=== PATIENT | male | born 1975 ===

== ENCOUNTER 2021-09-23 09:01 | Outpatient (REF) | payer OTHER, SELFPAY ==
--- NOTE | 2021-09-24 09:02 | MHC.AU.ANO ---
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 Gary reports approximately 9 years ago he experienced an accidental hit to the left ear. He had a hearing test following the incident and Gary notes the results showed decreased left ear hearing; however, a report is not available for review. There was also another episode of trauma when he fell and hit the right side of his head in 2019. Gary reports increased hearing trouble in the right ear now over the past few months. He has a significant history of headaches and intermittent unsteadiness/dizziness which increases with quick movement. Has hearing been tested previously?: Yes Previous Hearing Test Results: Results are not available for review. Hearing Handicap Inventory: HHIE SCORE: 26 Based on HHIE score, patient has: Severe perceived hearing handicap Ear History: Blocked/Full Sensation in Ear(s): Both Ears History of occupational noise exposure?: Yes History: No Medical History: Medical History: Headache, Head Injury, Vascular Problems Medical History: History of Vericose Veins with laser surgery. History of back pain Medication List: Multi vitamin, fish oil. Tramadol as need, but Gary notes he has not been taking this medication Otoscopy: Right Ear: Unremarkable Left Ear: Unremarkable Tympanometry: Tympanometry performed due to: To assess integrity of the middle ear system Right Ear: Hypercompliant Middle Ear System (Type Ad) Left Ear: Hypercompliant Middle Ear System (Type Ad) Otoacoustic Emissions Frequency Range Used: 1.6-8 kHz Right Ear Results: Present 5315-1880 Hz, Absent 6619-5951 Hz Analysis: Present emissions suggest normal cochlear function Reduced/Absent emissions suggest cochlear dysfunction, but may also be consequence of middle ear dysfunction Left Ear Results: Present 1600 & 2000 Hz. Absent 2507-3961 Hz Analysis: Present emissions suggest normal cochlear function Reduced/Absent emissions suggest cochlear dysfunction, but may also be consequence of middle ear dysfunction Hearing Evaluation: Transducer(s) Used: Insert Earphones Bone Conduction Method: Conventional Audiometry Stimuli Used: Pure Tones Right Ear: Description of Hearing: Borderline normal to normal hearing thresholds 250-8000 Hz with conductive components noted at 250 and 500 Hz Left Ear: Description of Hearing: Borderline normal hearing levels at 250-2000 Hz with mild conductive components noted, falling to a moderate mixed hearing loss at 3000 Hz, rising to normal threshold at 8000 Hz. Speech Recognition Threshold (SRT): Method Used: Monitored Live Voice Stimuli Used: Spondee Words Right Ear: 10 dB HL Left Ear: 15 dB HL Word Discrimination: Method: Recorded Lists Word Lists Used: NU-6 Right Ear: 92% at 50 dB HL Left Ear: 84% at 55 dB HL Interpretation of Results: Test results indicate an asymmetric hearing loss, with the left ear being 15-30 dB poorer than the right at 3000 and 4000 Hz, and essentially normal hearing thresholds for the remaining frequencies for both ears. There is a conductive nature to the loss for both ears which may relate to the hypercompliant middle ear systems which is greater for the left ear. It is difficult to know if Gary's history of head trauma may be a factor for the hypercompliance. The notched configuration for the left ear loss may be consistent with past history of noise exposure. Recommendations: - Referral to Ear, Nose, and Throat is recommended for further investigation of the asymmetric hearing loss and symptoms of dizziness and headaches. - Audiological re-evaluation in one year, or sooner if advised by his physician. Will send a reminder card. Diagnosis: Primary Diagnosis: H90.6 Mixed Hearing Loss, Bilateral Secondary Diagnosis: H69.93 Unspecified Eustachian Tube Dysfunction, Bilateral Services Performed: Comprehensive Audiological Evaluation (CPT 64910) Diagnostic Otoacoustic Emissions (CPT 32123, 26+TC) Tympanometry (CPT 94088) Signature: Provider: Christopher Jaime, [facility]
== END 2021-09-23 09:02 | disposition home or self-care (01) ==
LOC: HO.SH 09:01
PROVIDERS: Visit Provider Family Medicine
DX: Z01.118 Encounter for examination of ears and hearing with other abnormal findings (principal); H90.6 Mixed conductive and sensorineural hearing loss, bilateral; H69.93 Unspecified Eustachian tube disorder, bilateral
CPT/HCPCS: 92557; 92567; 92588

== ENCOUNTER 2024-03-15 14:30 | Outpatient (AMB) | payer OTHER, SELFPAY ==
--- NOTE | 2024-03-15 14:44 | MHC.OFFVIS ---
Vital Signs 03/15/24 14:46 Height 5 ft 9 in Weight 198 lb 6.656 oz BMI 29.3 BP 116/68 Blood Pressure Location Rt brachial Position Sitting Pulse 66 Intake Visit Reasons: Diverticulosis Intake Note: Patient in office today as a new patient for colonoscopy screening and diverticulosis. CC: Patient denies having any GI symptoms or concerns. He states that he had an MRI done at [facility] that showed diverticulosis. 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 He is referred by [facility]. P.m. X RANDEE History of DVT Lumbar degenerative disc disease. Pre diabetes Lipoma * SURGICAL HISTORY Vasectomy Cholecystectomy VV ablation * ALLERGIES: NKDA * Allmoxy LABS: none TODAY'S VISIT A few mos ago he developed severe LUQ pain that he described as burning, and he presented to [facility] and had a CT and he was told he had TICS. Txed with abx, and now feeling well. They told me that I needed a colonoscopy. There are no prior problems with anesthesia or sedation. He has RANDEE and denies any cardiac problems. No ID problems. There is no known similar colon problems or CRC Or polyps. ROV after colonoscopy get records form [facility]. [facility] Surgical History (Updated 03/15/24 @ 08:52 by CONRAD Razo) History of cholecystectomy H/O vasectomy Family History (Updated 03/15/24 @ 14:50 by BEBA Francois) Mother Leukemia Social History (Updated 03/15/24 @ 14:51 by BEBA Francois) Alcohol intake: former Comment: 15 years ago Patient Tobacco Use Status: Former Tobacco user Non Cigarette Tobacco use how lon years Use of substances other than those prescribed or required for medical reasons: No Review of Systems Const Denies fatigue, Denies fever(s), Denies night sweats, Denies poor appetite and Denies weight loss ENT Reports Normal hearing present, Denies dysphagia, Denies odynophagia, Denies throat swelling and Denies tongue swelling Card Reports no additional complaints Resp Reports no additional complaints GI Details: Denies abdominal pain, Denies melena, Denies bloating, Denies hematochezia, Denies constipation, Denies GI cramping, Denies dysphagia, Denies excessive flatus, Denies early satiety, Denies heartburn, Denies diarrhea, Denies nausea, Denies odynophagia, Denies vomiting and Denies hematemesis Skin/Breast Denies pruritus, Denies lesions, Denies rash and Denies jaundice Neuro Reports Normal hearing present and Denies Abnormal speech present Endo Denies fatigue Aller/Immun Denies throat swelling and Denies tongue swelling Physical Exam Vital Signs: Last Vital Signs Pulse 66 03/15/24 14:46 BP 116/68 03/15/24 14:46 BMI result Body Mass Index 29.3 Const General: cooperative, no acute distress, well developed and well groomed Nutritional Appearance: well nourished and obese Orientation/consciousness: oriented to person, oriented to place and oriented to time Limitations: No language barrier HEENT Head: Yes normocephalic and Yes atraumatic Eyes General: appearance normal, both eyes and all related structures Pupils: Equal, round and reactive pupils present Neck Neck: Yes normal visual inspection and Yes no lymphadenopathy Thyroid: Thyroid normal Resp Effort & Inspection: normal respiratory effort and able to speak in complete sentences Auscultation: clear to auscultation bilaterally Cardio Rate: regular rate Rhythm: regular rhythm Heart sounds: Normal, physiologic split S2 sound present Peripheral pulses: radial pulses present and posterior tibial pulses present GI Inspection: No distended, No Abdominal panniculus present and Yes obesity Palpation (GI): Soft to palpation, nontender, no guarding, not rigid and No hepatosplenomegaly present Percussion: Yes normal to percussion Auscultation: normal bowel sounds Rectal Exam - Male: Yes deferred Abdomen image: 1. surgical scars 2. 3. Skin General skin exam: no rashes or lesions noted, turgor normal, skin not dry, no jaundice, No spider nevi and no striae Rashes: no rashes Nails: normal Neuro General: oriented to person, oriented to place and oriented to time Cranial nerves: Yes Equal, round and reactive pupils present and Yes Normal hearing present Speech: No Abnormal speech present Extrem General: Yes normal to inspection, No clubbing, No cyanosis and No edema Psych Appearance: grossly normal and well kempt Mental Status: mental status grossly normal Speech and movement: Normal speech and movement present Affect: normal affect Attitude: cooperative Thought process: Normal thought process present and not confabulating Thought content: Normal thought content present Insight: Fair insight present (Psych) Judgement: Fair judgement present (Psych) Assessment & Plan Assessment & Plan (1) Pre-op examination: Code(s): Z01.818 - Encounter for other preprocedural examination Category: Medical (2) Diverticular disease: Code(s): K57.90 - Diverticulosis of intestine, part unspecified, without perforation or abscess without bleeding (3) History of diverticulitis: Code(s): Z87.19 - Personal history of other diseases of the digestive system Category: Medical (4) RANDEE (obstructive sleep apnea): Code(s): G47.33 - Obstructive sleep apnea (adult) (pediatric) Category: Medical (5) History of DVT in adulthood: Code(s): Z86.718 - Personal history of other venous thrombosis and embolism Category: Medical Plan A few mos ago he developed severe LUQ pain that he described as burning, and he presented to [facility] and had a CT and he was told he had TICS. Txed with abx, and now feeling well. They told me that I needed a colonoscopy. There are no prior problems with anesthesia or sedation. He has RANDEE and denies any cardiac problems. No ID problems. There is no known similar colon problems or CRC Or polyps. ROV after colonoscopy get records form [facility]. Orders: Orders Complete Blood Count Auto Diff 03/15/24 Z. - Encounter for other preprocedural examination, Z87.19 - Personal history of other diseases of the digestive system Colonoscopy - GI Use Only 03/15/24 Z.8 - Encounter for other preprocedural examination, Z87.19 - Personal history of other diseases of the digestive system Comprehensive Met. Panel 03/15/24 Z. - Encounter for other preprocedural examination, Z87.19 - Personal history of other diseases of the digestive system Medications: New peg 3350-electrolytes 236-22.74-6.74 -5.86 gram (Golytely) until fecal effluent is clear; do not exceed a total volume of 2,000 mL 240 mL PO Q10M 4,000 mL 0RF 1 day Z12.11 - Encounter for screening for malignant neoplasm of colon bisacodyl (Dulcolax (bisacodyl)) 10 mg (2 x 5 mg) PO BEDTIME 4 tabs 0RF 2 days Coding Level of Care Code New Pt Level 3 (64275) Diagnoses Pre-op examination Z01.818 Diverticular disease K57.90 History of diverticulitis Z87.19 RANDEE (obstructive sleep apnea) G47.33 History of DVT in adulthood Z86.718
[2024-03-15 14:46] VITALS: BP 116/68; PULSE 66; BMI 29.3
== END 2024-03-15 15:20 | disposition home or self-care (01) ==
LOC: HO.HGI 14:31
PROVIDERS: Visit Provider Nurse Practitioner
DX: K57.90 Diverticulosis of intestine, part unspecified, without perforation or abscess without bleeding (principal); Z87.19 Personal history of other diseases of the digestive system
CPT/HCPCS: 99203

== ENCOUNTER → 2024-03-15 14:30 | Outpatient (BNVA) | payer OTHER, SELFPAY | PROVIDERS: Visit Provider Nurse Practitioner | DX: Z01.818 Encounter for other preprocedural examination (principal); K57.90 Diverticulosis of intestine, part unspecified, without perforation or abscess without bleeding; G47.33 Obstructive sleep apnea (adult) (pediatric); Z86.718 Personal history of other venous thrombosis and embolism; Z87.19 Personal history of other diseases of the digestive system | CPT/HCPCS: 99202 ==

== ENCOUNTER 2024-07-12 08:57 | Outpatient (REF) | payer OTHER, SELFPAY ==
--- OUTSIDE RECORDS SUMMARY | 2024-07-12 09:47 | XMS_ITS | Encounter Summary ---
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 Name Role Phone Unavailable Primary Care Provider Unavailabl e Encounter Details Date Type Department Care Team (Latest Contact Info) Description 06/19/2020 Abstract [facility] CONVERSIONS Dental, Provider, DDS Social History Tobacco Use Types Packs/Day Years Used Date Smoking Tobacco: Never Assessed Sex and Gender Information Value Date Recorded Sex Assigned at Male 03/09/2022 10:18 AM EDT Legal Sex Male 10:18 AM EDT Gender Identity Male 03/09/2022 10:18 AM EDT Sexual Orientation Straight 03/09/2022 10 :18 AM EDT documented as of this encounter Plan of Treatment Not on file documented as of this encounter Visit Diagnoses Not on filedocumented in this encounter
--- OUTSIDE RECORDS SUMMARY | 2024-07-12 09:47 | XMS_ITS | Clinical Summary ---
Author Organization [address] [place] [address] [place] [phone] Phone Care Team Providers Care Medical Review Coordinator Name Role Phone Ken Cooper MD Primary Care Provi byron Allergies No known active allergies Medications capsaicin-methy l reuben-menthol 0.035-20-5 % cream Apply 1 Each topically 4 times daily as needed (pain at medial calf). 4 Active traMADoL (ULTRAM) 50 mg tablet Take 1 Tablet by mouth every 6 hours as needed. Active pregabalin (Lyrica) 50 mg capsule Take 1 capsule (50 mg total) by mouth 2 (two) times a day. Max Daily Amount: 100 mg 60 each 5 Active Active Problems Problem Noted Date Diagnosed Date Deep venous thrombosis 08/17/2022 Degeneration of cervical intervertebral disc 02/2023 Lipoma 08/17/2022 Obstructive sleep apnea syndrome 08/17/2022 Prediabetes 08/17/2022 Encounters Date Type Department Care Team Description 05/26/2024 2:00 PM EST Ancillary Procedure [facility] [place] [address] [facility] [address] [place] [phone] Varicose veins of leg with pain, right 05/19/2024 Telephone Vascular Surgery [address] [phone] Soo Coffman PA Forms/questionnaires ; Med Refill 05/15/2024 11:30 AM EST Office Visit Vascular [address] [place] [phone] Soo Coffman PA Varicose veins of leg with pain, right (Primary Dx); Disorder of nervous system after procedure 05/15/2024 Telephone Vascular Surgery [facility] [address] [place] [phone] Soo Coffman PA from Last 3 Months Social History Tobacco Use Types Packs/Day Years Used Date Smoking Tobacco: Never Sex and Gender Information Value Date Recorded Sex Assigned at Not on file Legal Sex Male 6:19 PM EST Gender Identity Not on file Sexual Orientation Not on file Obstetrics History Last Filed Vital Signs Vital Sign Reading Time Taken Comments Blood Pressure 107/56 05/15/2024 11:32 AM EST Pulse 67 05/15/2024 11:32 AM EST Temperature - - Respiratory Rate - - Oxygen Saturation - - Inhaled Oxygen Concentration - - Weight 90.7 kg (200 lb) 05/15/2024 11:32 AM EST Height 175.3 cm (5' 9 ) 05/15/2024 11:32 AM EST Body Mass Index 29.53 05/15/2024 11:32 AM EST Plan of Treatment Upcoming Encounters Date Type Department Care Team (Late st Contact Info) Description 07/28/2024 10:00 AM EDT Office Visit Vascular Surgery [facility] [address] [place] [phone] Aakash Barragan MD [address] [employer] [address] [place] [phone] Health Maintenance Due Date Last Done Comments Cholesterol Screening (Lipid Panel) 04/11/2022 Colorectal Cancer Screening: Colonoscopy 04/11/2022 Depression Screening 04/11/2022 HIV Screening 04/11/2022 Hepatitis C Screening 04/11/2022 Social Influencers of Health Screening 04/11/2022 COVID-19 Vaccine ( season) 2024 08/13/2020 Influenza Vaccine (#1) 2024 , 03/21/2020, 03/10/2019, Additional history exists DTaP,Tdap,and Td Vaccines (3 - Td or Tdap) 03/04/2025 03/04/2015, 07/02/2010 Hepatitis B Vaccines Completed 03/27/2016, 11/26/2011, 10/23/2011 HIB Vaccines Aged Out No longer eligi ble based on patient's age to complete this topic HPV Vaccines Aged Out No longer eligi ble based on patient's age to complete this topic Hepatitis A Vaccines Aged Out No long er eligible based on patient's age to complete this topic IPV Vaccines Aged Out No longer eligi ble based on patient's age to complete this topic MMR Vaccines Aged Out No longer eligi ble based on patient's age to complete this topic Meningococcal ACWY Vaccine Aged Out N o longer eligible based on patient's age to complete this topic Meningococcal B Vacine Aged Out No lo nger eligible based on patient's age to complete this topic Pneumococcal Vaccine: Pediatrics (0 to 5 Years) and At-Risk Patients (6 to 64 Years) Aged Out No longer eligible based on patient's age to complete this topic RSV Immunization Patients Under 20 months Aged Out No longer eligible based on patient's age to complete this topic Varicella Vaccines Aged Out No longer eligible based on patient's age to complete this topic Procedures Procedure Name Priority Date/Time Associated Diagnosis Comments VAS US DUPLEX LOWER EXT VENOUS INSUFFICIENCY RIGHT Routine 05/26/2024 2:39 PM EST Varicose veins of leg with pain, right from Last 3 Months Results * Vascular US duplex lower extremity venous insufficiency right (05/26/2024 2:39 PM EST) Right GSDC dev 0.33 cm CV VAS LAB Right GSPC dev 0.42 cm CV VAS LAB Right SFJ Diameter 0.64 cm CV VAS LAB Right [facility] dev 0.17 cm CV VAS LAB Right fem mid reflux 500 ms CV VAS LAB Right pop reflux 3,272 ms CV VAS LAB Right GSPC reflux 4,450 ms CV VAS LAB Right SSPC dev 0.36 cm CV VAS LAB Anatomical Region Laterality Modality Vascular, Abdomen Ultrasound Narrative 05/29/2024 3:49 PM EST Right: 1. ??The right lower extremity veins are compressible and there is no evidence of DVT in the right lower extremity venous system. 2. The GSV has clinically significant reflux of 4.4 seconds of the right upper calf. ??There is a refluxing branch from the GSV at the right upper calf as well with clinically significant reflux of 4.2 seconds. 3. ??The right popliteal vein has clinically significant reflux of 3.2 seconds in right deep femoral vein has mild reflux of 0.5 seconds. Prior Study Prior study findings: He is s/p RFA of the right greater saphenous vein and microphlebectomies x 10 on 08/05/2023. . Right Lower Venous No evidence of deep vein thrombosis in the common femoral, deep femoral, proximal femoral, mid femoral, distal femoral, popliteal, greater saphenous, small saphenous, posterior tibial and peroneal veins of the right leg. The vessels showed compressibility. Interrogation showed phasic and spontaneous Doppler signals. Right Venous Insufficiency Duplex The exam was performed with the patient in reverse Trendelenburg. Varicose veins seen in mid thigh without reflux. Upper calf 0.29cm GSV branch= 4220ms reflux Consulting Solution Director Details A lynn scale, color and doppler analysis ultrasound was performed. During the study longitudinal and transverse views were obtained. Pulsed wave doppler was performed. us Soo YANG CV VASCULAR PROCEDURES Final Result from Last [address] [address] PLAN Care Teams Medical Review Coordinator Relationship Specialty Start Date End Date Ken Cooper MD [address], [place] PCP - General Internal Medicine 09/03/21
--- OUTSIDE RECORDS SUMMARY | 2024-07-12 09:47 | XMS_ITS | Clinical Summary ---
Author Organization [employer] Address [address] [place] [address] Care Team Providers Care Content Engineer Name Role Phone Unavailable Primary Care Provider Unavailabl e Social History Tobacco Use Types Packs/Day Years Used Date Smoking Tobacco: Never Assessed Sex and Gender Information Value Date Recorded Sex Assigned at Male 03/09/2022 10:18 AM EDT Legal Sex Male 10:18 AM EDT Gender Identity Male 03/09/2022 10:18 AM EDT Sexual Orientation Straight 03/09/2022 10 :18 AM EDT Plan of Treatment Health Maintenance Due Date Last Done Comments CT Colonography 1977 Colonoscopy 1977 Colorectal Cancer Screening 1977 Depression Screening 1977 FIT DNA/Cologuard 1977 FIT 1977 FOBT 1977 Lipid Panel 1977 Sigmoidoscopy 1977 Alcohol/Substance Use Screening 1989 Tobacco Screening 1989 Family Planning (PISQ) 1992 COVID-19 Vaccine ( - 2023- season) 2024 Influenza Vaccine (#1) 2024 6, 03/04/2015, 01/16/2014, Additional history exists DTaP/Tdap/Td Vaccines (2 - Td or Tdap) 03/04/2025 03/04/2015, 07/02/2010 Zoster Vaccines (1 of 2) 11/02/2027 RSV Patients and Patients Aged 60 years or older (1 - 1-dose 75+ series) 2052 Hepatitis B Vaccines Completed 03/27/2016, 11/26/2011, 10/23/2011 [...] patient's age to complete this topic Meningococcal Vaccine Aged Out No jimbo yaritza eligible based on patient's age to complete this topic Pneumococcal Vaccine: Pediatrics (0 to 5 Years) and At-Risk Patients (6 to 49) Years) Aged Out No longer eligible based on patient's age to complete this topic RSV under 20 months Aged Out No longe r eligible based on patient's age to complete this topic Rotavirus Vaccines Aged Out No longer eligible based on patient's age to complete this topic
--- OUTSIDE RECORDS SUMMARY | 2024-07-12 09:47 | XMS_ITS | Encounter Summary ---
Author Organization [employer] [facility] Address [address] [place] [address] Care Team Providers Care Ceo & Founder Name Role Phone Unavailable Primary Care Provider Unavailabl e Encounter Details Date Type Department Care Team (Latest Contact Info) Description 07/16/[address] [facility] CONVERSIONS Dental, Provider, DDS Social History [...]
[2024-07-12 10:43] LABS: MANUAL DIFF FLAG NO
[2024-07-12 10:56] LABS: Basophils Absolute Auto 0.1 X10*3/uL (0.0-0.2); Basophils Percent Auto 0.9 % (0-2); Eosinophils Absolute Auto 0.2 X10*3/uL (0.0-0.4); Eosinophils Percent Auto 3.2 % (0-4); Hematocrit 38.8 % (42.0-52.0); Hemoglobin 12.7 g/dl (14.0-18.0); Imm Gran Abs Auto 0.01 X10*3/uL (0.00-0.03); Imm Gran Pct Auto 0.2 % (0.0-0.4); Lymphocytes Absolute Auto 2.6 X10*3/uL (1.2-4.9); Lymphocytes Percent Auto 48.4 % (20-40); Mean Corpuscular HGB Conc 32.7 g/dl (31.0-36.0); Mean Corpuscular Hemoglobin 26.7 pg (27.0-33.0); Mean Corpuscular Volume 81.7 fL (80.0-98.0); Monocytes Absolute Auto 0.4 X10*3/uL (0.1-1.2); Monocytes Percent Auto 7.1 % (2-11); Neutrophils Absolute Auto 2.1 x10*3/uL (2.0-8.3); Neutrophils Percent Auto 40.2 % (45-73); Platelet Count 259 X10*3/uL (160-400); Red Blood Count 4.75 X10*6/uL (4.60-5.80); Red Cell Distribution Width 14.1 % (11.0-16.0); White Blood Count 5.3 X10*3/uL (4.8-10.8)
[2024-07-12 11:19] LABS: Estimated Average Glucose 117 mg/dL; Hemoglobin A1C 129.4259 umol/L; Hemoglobin A1c % 5.7 % (<6.0); Total Hemoglobin (HGBA1C) 3333.2104 umol/L
[2024-07-12 12:20] LABS: Anion Gap 10 (12-20); Blood Urea Nitrogen 13 mg/dL (9-16); Calcium 9.4 mg/dL (8.4-10.2); Carbon Dioxide 28 mmol/L (22-29); Chloride 108 mmol/L (96-108); Cholesterol 203 mg/dL (<200); Estimated Glomerular Filt Rate > 60; Glucose Random 96 mg/dL (60-115); HDL Cholesterol 35 mg/dL (>40); LDL Cholesterol Calculated 146 mg/dL (<100); Potassium 3.6 mmol/L (3.3-5.1); Sodium 142 mmol/L (135-145); Triglycerides 111 mg/dL (<150)
[2024-07-12 12:28] LABS: Alanine Aminotransferase 42 U/L (0-40); Albumin Level 4.2 g/dL (3.5-5.0); Alkaline Phosphatase 68 U/L (39-117); Anion Gap 10 (12-20); Aspartate Amino Transferase 24 U/L (5-37); Bilirubin Total 0.4 mg/dL (0.0-1.0); Blood Urea Nitrogen 13 mg/dL (9-16); Calcium 9.1 mg/dL (8.4-10.2); Carbon Dioxide 27 mmol/L (22-29); Chloride 109 mmol/L (96-108); Estimated Glomerular Filt Rate > 60; Glucose Random 96 mg/dL (60-115); Potassium 3.6 mmol/L (3.3-5.1); Sodium 142 mmol/L (135-145); Total Protein 7.4 g/dL (6.5-8.0)
== END 2024-07-12 08:58 | disposition home or self-care (01) ==
LOC: HO.HMGCLDS 08:57
PROVIDERS: PCP Family Medicine; Visit Provider Nurse Practitioner
DX: Z01.818 Encounter for other preprocedural examination (principal); R73.03 Prediabetes; Z87.19 Personal history of other diseases of the digestive system
CPT/HCPCS: 36415; 80048; 80053; 80061; 83036; 85025